=== PATIENT | female | born 1955 | race Caucasian/White ===

== ENCOUNTER 2018-07-13 10:30 | Emergency (ER) | payer OTHER ==
--- NOTE | 2018-07-13 11:16 | EDPHY ---
H & P Time Seen by Provider: 07/13/18 11:12 HPI/ROS: CHIEF COMPLAINT: Chest discomfort HISTORY OF PRESENT ILLNESS: The patient is a 63-year-old female with a history of reflux who presents emergency department with substernal chest discomfort. The patient states her symptoms started last evening. They have been constant and persistent. She took [id number] medication as well as Prevacid which did not relieve her symptoms. Patient denies any shortness of breath. No cough. No fevers or chills. No diaphoresis. No nausea or vomiting. Patient denies any neck, jaw or arm pain. Patient states she has had ongoing issues with reflux and she is followed by Dr. Wade. He recently increased her Prevacid tried a alleviate her symptoms. She has also been manipulating her diet. She has an appointment with Dr. Bourgeois from Gastro[facility]ology tomorrow. REVIEW OF SYSTEMS: 10 systems were reveiwed and are negative with the exception of the elements mentioned in the history of present illness. Past Medical/Surgical History: Includes reflux Smoking Status: Never smoked Physical Exam: Vitals noted GENERAL: Well-appearing, in no acute distress, alert. HEENT: Eyes normal to inspection, normal pharynx, no signs of dehydration. NECK: Normal, supple. RESPIRATORY: Clear to auscultation bilaterally, no rales, rhonchi or wheezing. CVS: Regular rate and rhythm, no rubs, murmurs, or gallops. ABDOMEN: Soft, nontender, nondistended, no organomegaly. Completely benign BACK: Normal to inspection, no CVA tenderness. SKIN: Normal color, no rash, warm, dry. No pallor. EXTREMITIES: No pedal edema, no calf tenderness, no Homans sign or cords, no joint swelling. NEURO/PSYCH: Alert and oriented, normal mood and affect, normal motor sensory exam. Constitutional: Initial Vital Signs Temperature (C) 36.7 C 07/13/18 10:39 Heart Rate 75 07/13/18 10:39 Respiratory Rate 16 07/13/18 10:39 Blood Pressure 144/92 H 07/13/18 10:39 O2 Sat (%) 94 07/13/18 10:39 O2 Delivery Mode Room Air Allergies/Adverse Reactions: meperidine HCl [From Demerol] Allergy (Unknown, Verified 07/13/18 10:38) codeine [Codeine] Allergy (Verified 07/13/18 10:38) Home Medications: Medication Instructions Recorded Lansoprazole [Prevacid] 30 mg PO BID #60 capsule. 01/08/16 Zantac 01/08/16 Gaviscon Liquid 07/13/18 traMADol 07/13/18 Medical Decision Making - Diagnostics Imaging Results: Imaging Impressions Chest X-Ray 07/13/18 11:16 Impression: 1. Atherosclerotic tortuous aorta and mild cardiomegaly. 2. Mild bronchitis/airways disease. 3. No pneumonia, pleural effusion or pneumothorax. Chest/Thorax CTA 07/13/18 12:15 Impression: 1. There is no CT evidence of pulmonary artery thromboemboli. 2. Mild cardiomegaly without congestive heart failure. 3. Minimal airways' disease, with no focal infiltrate. 4. Marginal interval increase in the size of a dominant right hepatic lobe previously-proven benign cavernous hemangioma compared with previous studies of 2013 and 2016. 5. Moderate central canal stenosis at the T7-T8 level where there is a prominent dorsal disk osteophyte complex and thoracic kyphosis. Findings were discussed with MILIND CHOI MD at 13:46, on 07/13/2018. . ED Course/Re-evaluation: In the emergency department I discussed possible etiologies with the patient. I answered all her questions. An IV was placed. Laboratory studies, EKG and chest x-ray were ordered. Patient was given a GI cocktail as well as aspirin orally. EKG shows normal sinus rhythm, normal rate, normal axis, normal intervals. There are no ST or T-wave abnormalities. EKG is normal as interpreted by me. Patient's CBC was unremarkable. Patient's chemistry panel was normal. Patient's D-dimer came back elevated. On recheck the patient states her symptoms had improved after the GI cocktail. I discussed the results with the patient. I answered all her questions. Because of her elevated D-dimer a CT angiogram was ordered. I discussed this with the patient and she consented. On recheck the patient was stable. CT angiogram: Please refer the dictated report by Dr. Herron. No acute disease noted. 14 10: I rechecked the patient. She stated her pain had improved. As discussed, she has the appointment with Dr. Bourgeois tomorrow. She also call today to make the next available plan with Dr Wade. She was instructed to return to the emergency department with worsening symptoms. She is given warnings prior to leaving. Differential Diagnosis: My differential includes but is not limited to acute [place], ACS, dissection, aneurysm, pulmonary embolus, GERD, peptic ulcer disease, perforation, pancreatitis, cholecystitis, cholangitis, hiatal hernia - Data Points Laboratory Results: 07/13/18 07/13/18 11:42 11:37 POC Sodium 142 mEq/L mEq/L (135-145) POC Potassium 4.1 mEq/L mEq/L (3.3-5.0) POC Chloride 106.0 mEq/L mEq/L (97-110) POC Total CO2 26 mEq/L mEq/L (22-31) POC BUN 13 mg/dL mg/dL (7-23) POC Creatinine 0.8 mg/dL mg/dL (0.6-1.0) POC Glucose 114 mg/dL H mg/dL (70-100) POC Calcium 9.6 mg/dL mg/dL (8.5-10.4) POC Total Bilirubin 0.6 mg/dL mg/dL (0.1-1.4) POC AST 28 IU/L IU/L (14-46) POC ALT 17 IU/L IU/L (9-52) POC Alk Phosphatase 56 IU/L IU/L (38-126) POC Troponin I 0.00 ng/mL ng/mL (0.00-0.08) POC Total Protein 6.8 g/dL g/dL (6.3-8.2) POC Albumin 3.7 g/dL g/dL (3.5-5.0) Medications Given: Discontinued Medications Al Hydroxide/Mg Hydroxide (Maalox Susp) 30 ml PO ONCE ONE Stop: 07/13/18 11:19 Last Admin: 07/13/18 11:48 Dose: 30 ml Aspirin (Aspirin) 324 mg PO EDNOW ONE Stop: 07/13/18 11:19 Last Admin: 07/13/18 11:45 Dose: 324 mg Hyoscyamine Sulfate (Levsin, Hyomax-Sl) 0.25 mg PO ONCE ONE Stop: 07/13/18 11:19 Last Admin: 07/13/18 11:48 Dose: 0.25 mg Lidocaine (Lidocaine 2% Viscous) 15 ml PO ONCE ONE Stop: 07/13/18 11:19 Last Admin: 07/13/18 11:48 Dose: 15 ml Point of Care Test Results: CBC CBC Collection Date 07/13/18 CBC Collection Time 11:25 WBC 3.54 RBC 4.39 HGB 14.1 HCT 41.7 PLT 222 Neut # 1.82 Neut 51.5 LYMPH # 1.28 LYMPH 36.2 MCV 95.0 Chemistry 07/13/18 07/13/18 11:42 11:37 POC Sodium 142 mEq/L mEq/L (135-145) POC Potassium 4.1 mEq/L mEq/L (3.3-5.0) POC Chloride 106.0 mEq/L mEq/L (97-110) POC Total CO2 26 mEq/L mEq/L (22-31) POC BUN 13 mg/dL mg/dL (7-23) POC Creatinine 0.8 mg/dL mg/dL (0.6-1.0) POC Glucose 114 mg/dL H mg/dL (70-100) POC Calcium 9.6 mg/dL mg/dL (8.5-10.4) POC Total Bilirubin 0.6 mg/dL mg/dL (0.1-1.4) POC AST 28 IU/L IU/L (14-46) POC ALT 17 IU/L IU/L (9-52) POC Alk Phosphatase 56 IU/L IU/L (38-126) POC Troponin I 0.00 ng/mL ng/mL (0.00-0.08) POC Total Protein 6.8 g/dL g/dL (6.3-8.2) POC Albumin 3.7 g/dL g/dL (3.5-5.0) D-Dimer D-Dimer Collection Date 07/13/18 D-Dimer Collection Time 11:25 D-Dimer (ng/ml) 1730 Departure - Departure Disposition: Home, Routine, Self-Care Clinical Impression: Chest pain Qualifiers: Chest pain type: unspecified Qualified Code(s): R07.9 - Chest pain, unspecified Condition: Good Instructions: Chest Pain (ED) Additional Instructions: Return with increasing chest pain, shortness of breath, fever, chills or any other concerns. The CT angiogram of your chest was normal. Your troponin ( heart enzyme) was normal today. You still need close follow-up with your primary care physician. Keep your appointment tomorrow with Dr. Bourgeois. Referrals: Jovanna Bourgeois MD [Medical Doctor] - 1 day without fail José Luis Wade MD [Primary Care Provider] - 2-3 days without fail
[2018-07-13] MEDS ORDERED: HYOSCYAMINE SULFATE 0.125 MG TAB PO ONE (11:18)
[2018-07-13] MEDS ORDERED: LIDOCAINE 2% VISCOUS 15 ML UDCUP PO ONE (11:18)
[2018-07-13] MEDS ORDERED: MAG HYDROX/AL HYDROX/SIMETH 30 ML UDCUP PO ONE (11:18)
[2018-07-13] MEDS ORDERED: ASPIRIN 81 MG CHEWABLE TAB PO ONE (11:18)
[2018-07-13] MEDS ORDERED: IOPAMIDOL (ISOVUE 370) 100 ML BTL IV ONE (12:31)
--- NOTE | 2018-07-13 14:13 | CPEKG ---
Test Reason : OPEN Blood Pressure : / mmHG Vent. Rate : 071 BPM Atrial Rate : 072 BPM P-R Int : 156 ms QRS Dur : 092 ms QT Int : 393 ms P-R-T Axes : 030 -09 030 degrees QTc Int : 428 ms Sinus rhythm Confirmed by Ivone Wellington ([id number]) on 07/13/2018 2:12:46 PM Referred By: PHYSICIAN ED Confirmed By:Ivone Wellington
[2018-07-13 14:23] VITALS: BP 146/85
== END 2018-07-13 14:21 | disposition home or self-care (01) ==
LOC: CED 10:30
DX: R07.9 Chest pain, unspecified (principal)
CPT/HCPCS: 71046-PO; 71275-PO; 80053-ER; 84484-ER; Q9967

== ENCOUNTER → 2018-09-21 | Outpatient (CLI) | payer OTHER | LOC: EMCIMAGING 15:12 | PROVIDERS: ATTEND Family Medicine | DX: M79.662 Pain in left lower leg (principal); Z86.718 Personal history of other venous thrombosis and embolism; I82.812 Embolism and thrombosis of superficial veins of left lower extremity | CPT/HCPCS: 93971-PN ==